=== PATIENT | female | born 1955 | race Caucasian/White ===

== ENCOUNTER 2020-01-20 15:05 | Outpatient (CLI) | payer OTHER | END 2020-01-20 15:06 | disposition home or self-care (01) | LOC: COV 15:05 | PROVIDERS: ATTEND Family Medicine | DX: R05 Cough (principal); R50.9 Fever, unspecified | CPT/HCPCS: 81599 ==

== ENCOUNTER 2022-08-13 08:36 | Outpatient (CLI) | payer OTHER ==
--- NOTE | 2022-08-13 09:53 | XRAY Report ---
PROCEDURE: Foot 3 View RT INDICATIONS: R FOOT PX TECHNIQUE: 3 views of the foot were acquired. COMPARISON: None FINDINGS: Bones: Talus valgus alignment. Mild scattered arthrosis. Arthrodesis screw of the second toe DIP and PIP joints. Plate/fixation traversing the first MTP joint. No acute fracture or dislocation is identified. Plantar enthesopathy. Soft tissues: No suspicious soft tissue calcifications. IMPRESSION: Postsurgical changes of the first and second rays. No acute fracture or dislocation. Hallux valgus al ignment and mild scattered arthrosis. If there is high concern for further derangement, consider MRI evaluation. Reviewed by: Slim Corado MD on 08/13/2022 9:51 AM PDT Approved by: Slim Corado MD on 08/13/2022 9:51 AM PDT Station ID: [id number]
== END 2022-08-13 08:37 | disposition home or self-care (01) ==
LOC: DI.N 08:36
PROVIDERS: ATTEND Physician Assistant
DX: M20.11 Hallux valgus (acquired), right foot (principal); M19.071 Primary osteoarthritis, right ankle and foot; Z98.1 Arthrodesis status